=== PATIENT | male | born 1955 | race Caucasian/White ===

== ENCOUNTER → 2020-05-18 10:05 | Outpatient (CLI) | payer OTHER, SELFPAY ==
[2020-05-18 11:33] LABS: COVID19 -Nasal RAPID Negative (Negative)
== END ==
PROVIDERS: PCP Internal Medicine; Visit Provider Specialist
DX: Z20.822 Contact with and (suspected) exposure to COVID-19 (principal)
CPT/HCPCS: 87635; C9803

== ENCOUNTER 2020-05-21 06:40 | Day surgery (SDC) | payer OTHER, SELFPAY ==
[2020-05-18 09:11] VITALS: BMI 31.0
[2020-05-21] VITALS (11 sets, daily range): BP systolic 95–142; BP diastolic 60–87; PULSE 44–64; RESP 10–20; TEMP 36.2–36.6; O2SAT 91–99; BMI 29.6
--- NOTE | 2020-05-21 | PATH_ITS ---
[facility] Accession Number: [id number] . 01 Material submitted: . gallbladder - GALLBLADDER AND CONTENTS . 01 Clinical history: . LAP CONNOR . 02 Diagnosis: Gallbladder and Contents, Laparoscopic Cholecystectomy: Acute and chronic cholecystitis and cholelithiasis. [facility] 05/24/2020 1627 Local . 02 Electronically signed: . Sarah Bell MD, Pathologist NPI- [id number] . 01 Gross description: . The specimen is received in formalin, labeled gallbladder and contents and consists of a 10.5 x 3.0 x 3.0 cm previously disrupted gallbladder with a gallegos-pink wrinkled to smooth serosa. The cystic duct is patent and measures 0.2 cm in diameter. Opening reveals green viscous bile and multiple gallegos-pink to gallegos-green granular cholelith fragments ranging from 0.1 to 0.8 cm and one intact cholelith measuring 5.0 x 2.5 x 2.0 cm. The mucosa is gallegos-pink and trabeculated to velvety, and the wall thickness measures 0.1 cm. Call Center Dispatcher sections are submitted to include the en face cystic duct margin (blue) in cassette A1. ([id number]) /MRV 05/23/2020 1407 Local . 02 Pathologist provided ICD-10: K81.2 . 02 CPT . 760541 Performed at: 01 [facility] [address], [place], [place] [id number] MD Julio Cesar Mooney MD Phone: [phone] Performed at: 02 [facility] [address] , [place], [place] [id number] MD Gina Fuentes MD Phone: [phone]
[2020-05-21] MEDS: LACTATED RINGERS 1,000 ML 42 ML IV (07:34)
[2020-05-21] MEDS: CEFAZOLIN 2 GM/100 ML FROZ.PIGGY IV (08:03)
--- NOTE | 2020-05-21 08:28 | SUR.OPER ---
Supine on padded OR bed, head on pillow, safety belt at thigh, Arms secured on padded armboards <90 degrees abduction. Legs uncrossed. Padded footboard in place. Tape over blanket to secure lower legs.
[2020-05-21] MEDS: BUPIVACAINE 0.5% (PF) VIAL 30 ML INJ (08:30)
--- NOTE | 2020-05-21 08:47 | SUR.OPER ---
episode of bradycardia into the 20's, see anesthesia record. co2 insufflation lowered
--- NOTE | 2020-05-21 09:45 | PM.PREOP ---
Pre-operative Note COVID-19 COVID-19 status: Negative Result date/Date tested (Pos, Neg/Pending): 05/18/20 Interval Note History & Physical reviewed/Exam performed by Physician: Yes Changes to H&P: No
--- NOTE | 2020-05-21 09:56 | PM.OP.1 ---
Operative Date/Time/Diagnoses Date of procedure: 05/21/20 Time of procedure: 09:57 Pre-op diagnosis: Cholelithiasis with cholecystitis chronic. Post-op diagnosis: same Procedure & Clinicians Procedure: Laparoscopic cholecystectomy Same procedure as scheduled: Yes Indications: Diabetic patient with large gallstone. Surgeon: Andi Steward Click Yes if Unassisted: Yes Anesthesia Type: General Operative Notes Findings: Thickened gallbladder wall. Large stone within the lumen. Closure Type: primary Specimen(s): other (Gallbladder and contents) Prosthetic devices, grafts, tissues, transplants, or devices: None Estimated Blood Loss (mL): 10 Blood products transfused: none Procedure in detail: The patient was placed supine on the operating room table and underwent general endotracheal anesthesia. The patient was prepped and draped in the usual fashion. Local anesthetic was infiltrated near the umbilicus and curvilinear incision made and carried down through fascia into the peritoneal cavity. Stay sutures of 0 Vicryl were placed in the fascia. A 12 mm port was placed. The abdomen was insufflated. The patient was repositioned. Local anesthetic was infiltrated in 3 areas under the right costal margin and 3 small incisions made followed by placing 3 5 mm ports under direct laparoscopic camera vision internally. The gallbladder was grasped and elevated. Dissection was begun near its end. A ductal and vascular structures were from surrounding ones. Three clips were placed across each and they were divided leaving 2 in the patient. There were additional small vessels that had clips applied to them.. The gallbladder was then dissected from its bed in the liver using cautery. It was detached and removed without significant difficulty through the umbilical port. The cannula were removed and the port sites were all irrigated. The stay sutures at the umbilicus were elevated. A 2 0 PDS suture was placed between them. The Vicryl and PDS sutures were then tied. The skin in all areas was closed with interrupted 4 0 Vicryl subcuticular stitches. An additional 2-0 Prolene was used at the umbilicus to approximate the edges well. Steri-Strips and Mastisol were applied. Band-Aids were placed and the patient was awakened, extubated and taken to the recovery area in good condition. Complications: none Post-operative Condition: stable Disposition: PACU
--- NOTE | 2020-05-21 10:01 | SUR.PHASEI ---
Pt arrived to PACU from OR, VSS, abdominal dressing C/D/I, ice pack placed. Denied pain or nausea. Able to eat ice chips without difficulty. HR in high 40's & 50's, per anesthesia this is pt's baseline today. Blood glucose checked per anesthesia request = 187. Plan: fully recover pt and transfer to phase II recovery for D\C to home.
[2020-05-21] MEDS: OXYCODONE/ACETAMINOPHEN 5/325 TABLET 1 TAB PO (10:07)
== END 2020-05-21 11:10 | disposition home or self-care (01) ==
PROVIDERS: PCP Internal Medicine; Referring Provider Internal Medicine; Visit Provider Specialist
PROC: 0FT44ZZ Resection of Gallbladder, Percutaneous Endoscopic Approach (ICD-10-PCS; CPT 47562; principal; 2020-05-21 07:45)
DX: K80.10 Calculus of gallbladder with chronic cholecystitis without obstruction (principal); E11.9 Type 2 diabetes mellitus without complications; Z79.84 Long term (current) use of oral hypoglycemic drugs; F32.9 Major depressive disorder, single episode, unspecified
CPT/HCPCS: 47562; J0171; J0690; J2405; J2704; J3010

== ENCOUNTER → 2020-10-11 17:35 | Outpatient (CLI) | payer OTHER, SELFPAY ==
--- NOTE | 2020-10-11 | DI.MRI.S_ITS ---
PROCEDURE: MR LUMBAR SPINE WO CON INDICATIONS: LUMBAR RADICULOPATHY TECHNIQUE: Noncontrast sagittal T1 spin echo and T2 fast echo, sagittal STIR, axial T1 and T2 fast spin echo through the lumbar spine. In cases with scoliosis, additional coronal T2 fast spin echo may be performed. COMPARISON: None. FINDINGS: Image quality: Excellent. Alignment and Curvature: There is normal bony alignment. Bone Marrow: Marrow is of normal overall signal. No acute vertebral body compression fractures. Spinal Cord: Normal position and appearance of the conus. Regional Soft Tissues: Prevertebral and paraspinous soft tissues are within normal limits. T12-L1: No spinal canal or neural foraminal stenosis. L1-L2: No spinal canal or neural foraminal stenosis. L2-L3: No spinal canal or neural foraminal stenosis. L3-L4: Diffuse disc bulge and a superimposed broad-based posterior disc extrusion combine to flatten and indent the ventral thecal sac. Disc material abuts and slightly displaces the descending L4 nerve roots within both subarticular zones. There is bulky facet hypertrophy and buckling of the ligamentum flavum which further contributes to overall mild spinal canal and subarticular zone stenosis. These factors combine to produce mild bilateral neural foraminal narrowing. L4-L5: Diffuse disc bulge and a superimposed broad-based posterior disc protrusion flatten and indent the ventral thecal sac with displacement of the descending L5 nerve roots in both subarticular zones. Bulky facet hypertrophy and buckling of the ligamentum flavum further contribute to overall moderate subarticular zone stenosis and mild spinal canal stenosis. There is superior migration of disc material within the right paracentral and subarticular zones which extends approximately 1.7 centimeters above the intervertebral disc space. Foraminal components of the disc bulge and facet hypertrophy combine to produce mild bilateral neural foraminal narrowing. L5-S1: Diffuse disc bulge and a superimposed broad-based posterior disc protrusion with displacement of the descending S1 nerve root by disc material. No neural foraminal stenosis. Facet hypertrophy. IMPRESSION: Degenerative changes in the lower lumbar spine, most pronounced at L4-L5 where there is a disc extrusion with superior migration of disc material which combines with facet hypertrophy to produce moderate bilateral subarticular zone stenosis with displacement of the L5 nerve roots, right greater than left. Dictated by: James Lopez M.D. on 10/12/2020 at 8:35 Approved by: James Lopez M.D. on 10/12/2020 at 8:38
== END ==
PROVIDERS: PCP Internal Medicine; Referring Provider Internal Medicine; Visit Provider Internal Medicine
DX: M54.16 Radiculopathy, lumbar region (principal)
CPT/HCPCS: 72148

== ENCOUNTER → 2021-03-13 08:36 | Outpatient (CLI) | payer MEDICARE, OTHER, SELFPAY ==
[2021-03-13 09:44] LABS: Add Manual Diff / Slide Review NO; Basophils Absolute Auto 0 /uL (0-100); Basophils Percent Auto 0.6 % (0-2); Eosinophils Absolute Auto 200 /uL (0-450); Eosinophils Percent Auto 2.3 % (2-4); Hematocrit 43.8 % (41-53); Hemoglobin 14.9 g/dL (13.5-17.5); Lymphocytes Absolute Auto 2000 /uL (1100-4500); Lymphocytes Percent Auto 23.6 % (25-40); Mean Corpuscular Hemoglobin 28.2 PG (26-34); Mean Corpuscular Volume 82.7 fL (80-100); Monocytes Absolute Auto 700 /uL (0-900); Monocytes Percent Auto 8.5 % (3-14); Neutrophils Absolute Auto 5500 /uL (1500-7000); Platelet Count 351 X10^3/uL (150-400); Red Blood Cell Count 5.29 X10^6/uL (4.5-5.9); Red Cell Distribution Width 13.5 % (11.6-14.8); White Blood Cell Count 8.4 X10^3/uL (4.5-11.0)
[2021-03-13 10:07] LABS: Alanine Aminotransferase 32 IU/L (<50); Albumin 4.6 g/dL (3.5-5.0); Albumin Globulin Ratio 1.5 (1.0-2.8); Alkaline Phosphatase 99 U/L (38-126); Aspartate Aminotransferase 30 IU/L (17-59); BUN Creatinine Ratio 17.5 (6-22); Bilirubin Total 0.8 mg/dL (0.2-1.3); Blood Urea Nitrogen 14 mg/dL (9-20); Calcium 9.7 mg/dL (8.4-10.2); Carbon Dioxide 32 mmol/L (22-32); Chloride 100 mmol/L (98-107); Cholesterol 163 mg/dL (140-199); Estimated Glomerular Filt Rate > 60.0 mL/min (>60); Globulin 3.1 g/dL (1.7-4.1); Glucose 147 mg/dL (80-110); HDL Cholesterol 66 mg/dL (40-60); HEMOLYSIS < 15 (0-50); LDL Cholesterol Calculated 78 mg/dL (<100); Potassium 4.2 mmol/L (3.4-5.1); Sodium 140 mmol/L (137-145); Total Protein 7.7 g/dL (6.3-8.2); Triglycerides 95 mg/dL (35-150)
[2021-03-13 10:21] LABS: Hemoglobin A1C% w Est Avg Glu 6.8 % (4.0-6.0)
[2021-03-13 10:34] LABS: Creatinine Urine Random 85.9 mg/dL
[2021-03-13 10:36] LABS: Microalbumi Creatinin Ratio Ur 13.9 ug/mg CR (<30); Microalbumin Urine Random 1.2 mg/dL (0-1.6)
[2021-03-13 10:42] LABS: TSH w/ Reflex to FT4 2.19 uIU/mL (0.47-4.68)
== END ==
PROVIDERS: PCP Family Medicine; Referring Provider Family Medicine; Visit Provider Family Medicine
DX: E11.9 Type 2 diabetes mellitus without complications (principal); E78.5 Hyperlipidemia, unspecified; G89.29 Other chronic pain; I10 Essential (primary) hypertension; M54.59 Other low back pain
CPT/HCPCS: 36415; 80053; 80061; 82043; 82570; 83036; 84443; 85025

== ENCOUNTER 2021-06-20 22:10 | Emergency (ER) | payer MEDICARE, OTHER, SELFPAY ==
[2021-06-20] VITALS (10 sets, daily range): BP systolic 167–214; BP diastolic 84–101; PULSE 55–71; RESP 16–24; TEMP 36.6; O2SAT 94–98; BMI 27.3
--- NOTE | 2021-06-20 22:41 | ED_ITS ---
HPI - General Adult General Chief complaint: Hypertension Stated complaint: multiple headaches Time Seen by Provider: 06/20/21 22:30 Source: patient Mode of arrival: Ambulatory History of Present Illness HPI narrative: Patient is a 66-year-old male. Has a history of high blood pressure. Approximately 6 weeks ago he was switched from amlodipine to lisinopril for treatment of his blood pressure. He states this was done by his primary doctor because of concerns that the amlodipine could cause liver issues. Since that time he has had headaches. He does have a history of migraines. The headache that he currently has feels very similar to his prior history of migraines. He has not had any migraine for several years. He is somewhat concerned that maybe the lisinopril is causing the headaches. He does have periods of time when the headache is worse than others but has had daily headaches for the past several weeks. Continues to take his lisinopril. Only occasionally takes his blood pressure at home and today he was having a more severe headache than normal for him so he took his blood pressure and was elevated. Contacted the triage nurse who told him to come to the emergency department for further evaluation. Related Data Home Medications Medication Instructions Recorded Confirmed fluticasone propionate 50 1 spray INTRANASAL BID 04/24/20 05/13/21 mcg/actuation nasal spray,suspension (Flonase Allergy Relief) acetaminophen 325 mg capsule 650 mg PO Q6H PRN 02/07/21 05/13/21 (Tylenol) aspirin 81 mg tablet,delayed 81 mg PO DAILY 02/07/21 05/13/21 release (Adult Low Dose Aspirin) gabapentin 300 mg capsule 300 mg PO BID 02/07/21 05/13/21 metformin 500 mg tablet 500 mg PO BID tab 02/07/21 05/13/21 pravastatin 10 mg tablet 10 mg PO BEDTIME 02/07/21 05/13/21 propranolol 40 mg tablet 20 mg PO BID 02/07/21 05/13/21 Previous Rx's Medication Instructions Recorded duloxetine 30 mg capsule,delayed 30 mg PO DAILY #90 cap 05/07/21 release (Cymbalta) losartan 100 mg tablet 100 mg PO DAILY #90 tab 05/13/21 tramadol 50 mg tablet 50 mg PO BID PRN #60 tab 05/13/21 meloxicam 15 mg tablet 15 mg PO DAILY #90 tab 05/15/21 Allergies Allergy/AdvReac Type Severity Reaction Status Date / Time No Known Drug Allergies Allergy Unverified 06/20/21 22:21 Review of Systems Constitutional Constitutional: Denies fever(s) and Reports headache(s) Eyes Eyes: Reports system reviewed and no additional complaints, except as documented ENT Ears, Nose, Mouth, and Throat: Reports headache(s) Cardiovascular Cardiovascular: Reports system reviewed and no additional complaints, except as documented, Denies chest pain and Denies dyspnea Respiratory Respiratory: Reports system reviewed and no additional complaints, except as documented and Denies dyspnea Gastrointestinal Gastrointestinal: Reports system reviewed and no additional complaints, except as documented Musculoskeletal Musculoskeletal: Reports system reviewed and no additional complaints, except as documented Integumentary/Breasts Skin/Breast: Reports system reviewed and no additional complaints, except as documented Neurologic Neurologic: Reports headache(s) Hematologic/Lymphatic On Anticoagulants: No Allergic/Immunologic Allergic/Immunologic: Reports system reviewed and no additional complaints, except as documented Patient History Medical History Allergies (~1995) Ankle pain (~2011) Anxiety (~2011) Arthritis Carpal tunnel syndrome (~2002) Chicken pox (~1961) Chronic back pain (~1993) Chronic bronchitis Depression (~2011) Diabetes (~2012) Foot pain (~2019) GERD (gastroesophageal reflux disease) (~1997) Headache (~1979) Hearing loss (~1992) Hyperlipidemia Hypertension Irritable bowel syndrome (~1995) Migraines (~1999) Mumps (~1960) Osteoarthritis Recurrent sinusitis (~1977) Rheumatoid arthritis (~2009) Shoulder pain Sleep apnea (~2010) Tinnitus (~1992) Surgical History (Updated 03/13/21 @ 21:04 by Olga Baptiste) Anesthesia History of back surgery History of cholecystectomy History of colonoscopy (2014) Hx of bilateral cataract extraction (~2015) Hx of eye surgery Family History (Updated 03/13/21 @ 21:11 by Olga Baptiste) Mother Hypertension Diabetes mellitus Heart disease Gallstones H/O heart bypass surgery COPD (chronic obstructive pulmonary disease) Circulation problem Hyperlipidemia Grandfather Stomach cancer Father Dementia History of hip replacement Heart valve replaced Sister Depression Anxiety Thyroid disease Grandmother Dementia Diabetes mellitus Family/Other Anxiety Depression Social History marital status: household members: spouse occupational status: employed Smoking Status: Never smoker alcohol intake: current substance use type: does not use Smoking Status: Never smoker alcohol intake frequency: holidays/special occasions only Substance Use Type: does not use Exam Initial Vital Signs Initial Vital Signs: Vital Signs Pulse Rate 71 06/20/21 22:16 Pulse Oximetry 96 06/20/21 22:16 Const General: cooperative, healthy appearing, comfortable and well developed HENMT Head: normal to inspection and normocephalic Resp Effort & Inspection: normal respiratory effort Auscultation: clear to auscultation bilaterally Cardio Rate: regular rate Rhythm: regular rhythm GI Inspection: normal to inspection Skin General: no rashes or lesions noted Neuro General: patient alert, patient awake, patient oriented x3 and moves all extremities Extrem General: normal to inspection and capillary refill normal Psych Appearance: grossly normal and well kempt Scores GCS Lynn coma scale eye opening: Spontaneous [place] coma scale verbal response: Orientated [place] coma scale motor response: Obey commands [place] coma scale total score: 15 Course Orders Ordered: ED Orders 06/20/21 22:22 EKG-12 Lead Stat Discontinued Medications Diphenhydramine HCl (Diphenhydramine 50 Mg/Ml Vial) 25 mg IV NOW ONE Stop: 06/20/21 22:43 Last Admin: 06/20/21 22:52 Dose: 25 mg Documented by: ANABEL Sodium Chloride (Normal Saline 0.9%) 1,000 mls @ 1,000 mls/hr IV BOLUS ONE Stop: 06/20/21 23:41 Last Infusion: 06/21/21 00:07 Dose: 0 mls/hr Documented by: Admin: 06/20/21 22:52 Dose: 1,000 mls/hr Documented by: ANABEL Ketorolac Tromethamine (Ketorolac 30 Mg/Ml Vial) 30 mg IV NOW ONE Stop: 06/20/21 22:43 Last Admin: 06/20/21 22:52 Dose: 30 mg Documented by: ANABEL Metoclopramide HCl (Metoclopramide 10 Mg/2 Ml Inj) 10 mg IV NOW ONE Stop: 06/20/21 22:43 Last Admin: 06/20/21 22:52 Dose: 10 mg Documented by: ANABEL Vital Signs Vital signs: Vital Signs - 8 hr 06/20/21 22:16 06/20/21 22:17 06/20/21 22:21 Temperature 97.9 F Pulse Rate 71 71 60 Respiratory Rate 16 24 Blood Pressure 214/101 H 206/100 H Pulse Oximetry 96 95 95 06/20/21 22:30 06/20/21 22:45 06/20/21 23:00 Temperature Pulse Rate 58 L 59 L 56 L Respiratory Rate 19 20 24 Blood Pressure 193/84 H 176/91 H 178/96 H Pulse Oximetry 94 94 95 06/20/21 23:15 06/20/21 23:30 06/20/21 23:45 Temperature Pulse Rate 55 L 56 L 57 L Respiratory Rate 17 20 19 Blood Pressure 175/89 H 177/98 H Pulse Oximetry 95 94 94 06/20/21 23:46 06/21/21 00:00 06/21/21 00:15 Temperature Pulse Rate 57 L 54 L 52 L Respiratory Rate 19 17 Blood Pressure 167/86 H 153/83 H Pulse Oximetry 95 94 97 06/21/21 00:30 06/21/21 00:45 06/21/21 01:00 Temperature Pulse Rate 54 L 56 L 59 L Respiratory Rate Blood Pressure Pulse Oximetry 94 94 95 06/21/21 01:03 Temperature Pulse Rate Respiratory Rate Blood Pressure 155/93 H Pulse Oximetry Medical Decision Making MDM Narrative Medical decision making narrative: Have low suspicion for CVA. Low suspicion for meningitis. Low suspicion for TIA. Patient had almost complete resolution of symptoms after medications provided here in the ER. His blood pressure improved as well. I have a higher concern that the hypertension was because of the discomfort of the headache rather than headache being because of the high blood pressure. Patient feels o pj with going home. I feel that we can hold on any radiologic studies or lab tests for now as I do not feel that is going to change disposition. He will take his blood pressure at home. He is going to contact his primary doctor about whether not to stop the lisinopril as this may be causing his headaches. He was given strict return precautions. He expressed understanding and agreement. Discharge Plan Departure Patient Disposition: Home Clinical Impression: Hypertension, Headache Instructions: DI for High Blood Pressure Activity Restrictions/Additional Instructions: I do recommend that you take your blood pressure at home like we discussed. Also contact your primary doctor for a follow-up. It is not unreasonable in the short term to stop taking the lisinopril to see if your headaches improve. If they do then you most likely need another form of a blood pressure medication. Return to the emergency department for any new or worsening symptoms. Prescriptions: No Action duloxetine [Cymbalta] 30 mg capsule,delayed release(DR/EC) 30 mg PO DAILY Qty: 90 3RF meloxicam 15 mg tablet 15 mg PO DAILY Qty: 90 3RF propranolol 40 mg tablet 20 mg PO BID 0RF gabapentin 300 mg capsule 300 mg PO BID 0RF pravastatin 10 mg tablet 10 mg PO BEDTIME 0RF aspirin [Adult Low Dose Aspirin] 81 mg tablet,delayed release (DR/EC) 81 mg PO DAILY 0RF acetaminophen [Tylenol] 325 mg capsule 650 mg PO Q6H PRN0RF metformin 500 mg tablet 500 mg PO BID 0RF losartan 100 mg tablet 100 mg PO DAILY Qty: 90 3RF tramadol 50 mg tablet 50 mg PO BID PRN (Reason: Pain) Qty: 60 0RF fluticasone propionate [Flonase Allergy Relief] 50 mcg/actuation spray ,suspension 1 spray intranasal BID 0RF Rx Instructions: administer into each nostril Referrals: Diego Meng MD [Primary Care Provider] -
[2021-06-20] MEDS: SODIUM CHLORIDE 0.9% 1,000 ML 1000 ML IV (22:52)
[2021-06-20] MEDS: KETOROLAC 30 MG/ML VIAL IV (22:52)
[2021-06-20] MEDS: METOCLOPRAMIDE 10 MG/2 ML INJ IV (22:52)
[2021-06-20] MEDS: diphenhydrAMINE 50 MG/ML VIAL 25 MG IV (22:52)
[2021-06-21] VITALS: BP 153/83; PULSE 54; RESP 17; O2SAT 94
[2021-06-21 00:15] VITALS: PULSE 52; O2SAT 97
[2021-06-21 00:30] VITALS: PULSE 54; O2SAT 94
[2021-06-21 00:45] VITALS: PULSE 56; O2SAT 94
[2021-06-21 01:00] VITALS: PULSE 59; O2SAT 95
[2021-06-21 01:03] VITALS: BP 155/93
== END 2021-06-21 01:10 | disposition home or self-care (01) ==
PROVIDERS: Emergency Provider Emergency Medicine; PCP Family Medicine
DX: I10 Essential (primary) hypertension (principal); R51.9 Headache, unspecified
CPT/HCPCS: 36415; 93005; 93010; 96361; 96374; 96375; 99284; J1200; J1885; J2765

== ENCOUNTER 2021-06-23 17:41 | Emergency (ER) | payer MEDICARE, OTHER, SELFPAY ==
[2021-06-23] VITALS (12 sets, daily range): BP systolic 166–221; BP diastolic 87–115; PULSE 60–69; RESP 16–20; TEMP 36.4; O2SAT 94–98
--- NOTE | 2021-06-23 18:00 | ED_ITS ---
HPI - Headache General Chief Complaint: Headache Stated Complaint: Massive headache; high BP; Time Seen by Provider: 06/23/21 17:51 Source: patient Mode of arrival: Ambulatory Limitations: no limitations History of Present Illness HPI Narrative: Patient is a 66-year-old male. Was seen here in the emergency department by myself couple days ago for a headache and high blood pressure. At that time patient had been having headache for the past month but has been worsening recently. He thought that it was because of a change in his blood pressure medicine. His primary doctor switched him from amlodipine to losartan. He was given medicines here in the emergency department and discharged home feeling better. He stopped his losartan. He continue the rest was medications as directed. Since being discharged from the hospital he stated that he woke up the next day with a ?slight ?headache. He was able to work around the house but then that evening started to develop headache again and then had a headache all day today. He states is the same headache that he had a couple days ago. Related Data Home Medications Medication Instructions Recorded Confirmed fluticasone propionate 50 1 spray INTRANASAL BID 04/24/20 05/13/21 mcg/actuation nasal spray,suspension (Flonase Allergy Relief) acetaminophen 325 mg capsule 650 mg PO Q6H PRN 02/07/21 05/13/21 (Tylenol) aspirin 81 mg tablet,delayed 81 mg PO DAILY 02/07/21 05/13/21 release (Adult Low Dose Aspirin) gabapentin 300 mg capsule 300 mg PO BID 02/07/21 05/13/21 metformin 500 mg tablet 500 mg PO BID tab 02/07/21 05/13/21 pravastatin 10 mg tablet 10 mg PO BEDTIME 02/07/21 05/13/21 propranolol 40 mg tablet 20 mg PO BID 02/07/21 05/13/21 Previous Rx's Medication Instructions Recorded duloxetine 30 mg capsule,delayed 30 mg PO DAILY #90 cap 05/07/21 release (Cymbalta) losartan 100 mg tablet 100 mg PO DAILY #90 tab 05/13/21 tramadol 50 mg tablet 50 mg PO BID PRN #60 tab 05/13/21 meloxicam 15 mg tablet 15 mg PO DAILY #90 tab 05/15/21 [id number] 1 cap PO Q4-6H PRN #14 cap 06/23/21 50 mg-300 mg-40 mg capsule (Fioricet) Allergies Allergy/AdvReac Type Severity Reaction Status Date / Time No Known Drug Allergies Allergy Unverified 06/23/21 17:53 Review of Systems Constitutional Constitutional: Denies fever(s) and Reports headache(s) Eyes Eyes: Reports system reviewed and no additional complaints, except as documented ENT Ears, Nose, Mouth, and Throat: Reports headache(s) Cardiovascular Cardiovascular: Denies chest pain and Denies dyspnea Respiratory Respiratory: Denies dyspnea Gastrointestinal Gastrointestinal: Denies abdominal pain, Denies nausea and Denies vomiting Musculoskeletal Musculoskeletal: Reports system reviewed and no additional complaints, except as documented Integumentary/Breasts Skin/Breast: Reports system reviewed and no additional complaints, except as documented Neurologic Neurologic: Reports headache(s) Psychiatric Psychiatric: Reports system reviewed and no additional complaints, except as documented Hematologic/Lymphatic On Anticoagulants: No Patient History Medical History Allergies (~1995) Ankle pain (~2011) Anxiety (~2011) Arthritis Carpal tunnel syndrome (~2002) Chicken pox (~1961) Chronic back pain (~1993) Chronic bronchitis Depression (~2011) Diabetes (~2012) Foot pain (~2019) GERD (gastroesophageal reflux disease) (~1997) Headache (~1979) Hearing loss (~1992) Hyperlipidemia Hypertension Irritable bowel syndrome (~1995) Migraines (~1999) Mumps (~1960) Osteoarthritis Recurrent sinusitis (~1977) Rheumatoid arthritis (~2009) Shoulder pain Sleep apnea (~2010) Tinnitus (~1992) Surgical History (Updated 03/13/21 @ 21:04 by Olga Baptiste) Anesthesia History of back surgery History of cholecystectomy History of colonoscopy (2014) Hx of bilateral cataract extraction (~2015) Hx of eye surgery Family History (Updated 03/13/21 @ 21:11 by Olga Baptiste) Mother Hypertension Diabetes mellitus Heart disease Gallstones H/O heart bypass surgery COPD (chronic obstructive pulmonary disease) Circulation problem Hyperlipidemia Grandfather Stomach cancer Father Dementia History of hip replacement Heart valve replaced Sister Depression Anxiety Thyroid disease Grandmother Dementia Diabetes mellitus Family/Other Anxiety Depression Social History marital status: household members: spouse occupational status: employed Smoking Status: Never smoker alcohol intake: current substance use type: does not use Smoking Status: Never smoker alcohol intake frequency: holidays/special occasions only Substance Use Type: does not use Exam Initial Vital Signs Initial Vital Signs: Vital Signs Temperature 97.5 F L 06/23/21 17:51 Pulse Rate 68 06/23/21 17:51 Respiratory Rate 18 06/23/21 17:51 Blood Pressure 218/115 H 06/23/21 17:51 Pulse Oximetry 97 06/23/21 17:51 HENMT Head: normal to inspection and normocephalic Eyes General: appearance normal, both eyes and all related structures Resp Effort & Inspection: normal respiratory effort Auscultation: clear to auscultation bilaterally Cardio Rate: regular rate Rhythm: regular rhythm GI Inspection: normal to inspection Skin General: no rashes or lesions noted Neuro General: patient alert, patient awake and patient oriented x3 Speech: speech normal Gait: normal gait Extrem General: normal to inspection and capillary refill normal Psych Appearance: grossly normal Course Orders Ordered: ED Orders 06/23/21 17:45 Basic Metabolic Panel Stat Complete Blood Count AUTO DIFF Stat 06/23/21 18:20 CT head/brain wo con Stat Discontinued Medications Diphenhydramine HCl (Diphenhydramine 50 Mg/Ml Vial) 25 mg IV NOW ONE Stop: 06/23/21 18:20 Last Admin: 06/23/21 18:41 Dose: 25 mg Documented by: GREGORIO Sodium Chloride (Normal Saline 0.9%) 1,000 mls @ 1,000 mls/hr IV BOLUS ONE Stop: 06/23/21 19:18 Last Infusion: 06/23/21 19:38 Dose: 0 mls/hr Documented by: Admin: 06/23/21 18:39 Dose: 1,000 mls/hr Documented by: JOSTINYLKULDEEP Ketorolac Tromethamine (Ketorolac 30 Mg/Ml Vial) 30 mg IV NOW ONE Stop: 06/23/21 18:20 Last Admin: 06/23/21 18:44 Dose: 30 mg Documented by: JOSTINYLKULDEEP Methylprednisolone (Methylprednisolone 125 Mg/2 Ml Vial) 125 mg IV NOW ONE Stop: 06/23/21 18:20 Last Admin: 06/23/21 18:46 Dose: 125 mg Documented by: JOSTINYLOR Metoclopramide HCl (Metoclopramide 10 Mg/2 Ml Inj) 10 mg IV NOW ONE Stop: 06/23/21 18:20 Last Admin: 06/23/21 18:39 Dose: 10 mg Documented by: JOSTINYLOR Morphine Sulfate (Morphine 4 Mg/Ml Inj) 4 mg IV NOW ONE Stop: 06/23/21 19:40 Last Admin: 06/23/21 19:48 Dose: 4 mg Documented by: KIZZY Vital Signs Vital signs: Vital Signs - 8 hr 06/23/21 17:51 06/23/21 17:52 06/23/21 18:00 Temperature 97.5 F L Pulse Rate 68 64 65 Respiratory Rate 18 20 Blood Pressure 218/115 H 196/93 H Pulse Oximetry 97 96 96 06/23/21 18:38 06/23/21 18:50 06/23/21 19:00 Temperature Pulse Rate 62 64 60 Respiratory Rate Blood Pressure 198/93 H 198/98 H Pulse Oximetry 98 95 95 06/23/21 19:30 06/23/21 19:38 06/23/21 19:46 Temperature Pulse Rate 61 69 63 Respiratory Rate Blood Pressure 221/105 H 185/95 H 186/87 H Pulse Oximetry 97 95 96 06/23/21 20:00 06/23/21 20:15 06/23/21 20:30 Temperature Pulse Rate 61 68 67 Respiratory Rate 16 Blood Pressure 166/88 H 176/101 H 173/94 H Pulse Oximetry 95 95 94 MDM - Headache Lab Data Attestation: I reviewed the patient's lab results. Result diagrams: 06/23/21 17:45 06/23/21 17:45 Labs: Lab Results 06/23/21 06/23/21 Range/Units 17:45 17:45 WBC 11.3 H (4.5-11.0) X10^3/uL RBC 5.56 (4.5-5.9) X10^6/uL Hgb 15.6 (13.5-17.5) g/dL Hct 46.2 (41-53) % MCV 83.1 (80-100) fL MCH 28.0 (26-34) PG MCHC 33.7 (30-36) % RDW 13.5 (11.6-14.8) % Plt Count 372 (150-400) X10^3/uL Neut % (Auto) 83.0 H (50-75) % Lymph % (Auto) 12.1 L (25-40) % [place] % (Auto) 4.1 (3-14) % Eos % (Auto) 0.4 L (2-4) % Baso % (Auto) 0.4 (0-2) % Neut # (Auto) 9400 H (3656-1915) /uL Lymph # (Auto) 1400 (5251-3705) /uL [place] # (Auto) 500 (0-900) /uL Eos # (Auto) 0 (0-450) /uL Baso # (Auto) 0 (0-100) /uL Sodium 136 L (137-145) mmol/L Potassium 4.4 (3.4-5.1) mmol/L Chloride 100 (98-107) mmol/L Carbon Dioxide 30 (22-32) mmol/L BUN 15 (9-20) mg/dL Creatinine 0.88 (0.66-1.25) mg/dL Estimated GFR > 60.0 (>60) mL/min BUN/Creatinine Ratio 17.0 (6-22) Glucose 184 H (80-110) mg/dL Calcium 10.0 (8.4-10.2) mg/dL Imaging Data CT scan - head: Radiologist's Impression: [address] [address] [address] Scan Report Signed Patient: Ish Lilly MR#: [id number] : 1955 Acct:[id number] Age/Sex: 66 / M Date of Service: 06/23/21 Loc: ED Accession Number: [id number] ?? Procedure: CT head/brain wo con Ordering Provider: Kingsley Kulkarni D.O. PROCEDURE:? CT HEAD/BRAIN WO CON ? INDICATIONS:? headache and HTN ? TECHNIQUE:? Noncontrast 4.5 mm thick angled axial sections acquired from the foramen magnum to the vertex, with coronal and sagittal reformats.? For radiation dose reduction, the following was used:? automated exposure control, adjustment of mA and/or kV according to patient size.? ? COMPARISON:? None. ? FINDINGS:? Image quality:? Excellent.? ? CSF spaces:? Basal cisterns are patent.? No extra-axial fluid collections.? The ventricles are symmetric in size and shape.? ? Brain:? No intracranial bleeds or masses.? There is cerebral volume loss for age, with resultant ventricular and sulcal prominence.? There are periventricular and deep white matter chronic small vessel ischemic changes.? There is intracranial internal carotid artery atherosclerosis.? ? Skull and face:? Calvarium and visualized facial bones appear intact, without suspicious lesions.? ? Sinuses:? Visualized sinuses and mastoids are clear.? ? IMPRESSION:? No acute intracranial abnormality. ? ? Dictated by: Giuliano Hoang M.D. on 06/23/2021 at 18:37 ? ? Approved by: Giuliano Hoang M.D. on 06/23/2021 at 18:38?? MDM Narrative Medical decision making narrative: Patient has the same headache that he had 2 days ago. He is hypertensive but also has not taken any of his losartan in the past couple days. His head CT was unremarkable. Labs are unremarkable. Has a unremarkable neurologic exam. Low suspicion for CVA. Low suspicion for TIA. Unsure as to whether not his headaches are caused by his high blood pressure for high blood pressure cause by his headache or potentially both. He feels better after medications provided here in the ER but the headache is not completely gone. He has an appointment with his primary doctor scheduled in just over a week from now. Plan will be is to have him start back on his amlodipine. He states he was taken off of this medication because of the concern for long-term affects with his kidneys. Not being on a blood pressure medicine most likely is causing his elevation today. He will discuss with his primary provider about any potential changes. He has amlodipine at home already available for him to take. Also send him home with Rory is his headaches could just unfortunately be a recurrence of the headaches he had many years ago. He was given return precautions and follow-up instructions. He expressed understanding and agreement. Discharge Plan Departure Patient Disposition: Home Clinical Impression: Headache, Hypertension Instructions: DI for Headache Activity Restrictions/Additional Instructions: Continue all of your medications at home except for stopping the losartan. I do recommend that you go back on the amlodipine at your prior dose. I electronically sent a headache medication to the [facility]. Please pick it up tomorrow and take it as directed. Keep your appointment she has scheduled with your primary provider. Return to the emergency department for any new or worsening symptoms. Prescriptions: New [id number]-[id number] [Fioricet] 50-300-40 mg capsule 1 cap PO Q4-6H PRN (Reason: pain) Qty: 14 0RF No Action duloxetine [Cymbalta] 30 mg capsule,delayed release(DR/EC) 30 mg PO DAILY Qty: 90 3RF meloxicam 15 mg tablet 15 mg PO DAILY Qty: 90 3RF propranolol 40 mg tablet 20 mg PO BID 0RF gabapentin 300 mg capsule 300 mg PO BID 0RF pravastatin 10 mg tablet 10 mg PO BEDTIME 0RF aspirin [Adult Low Dose Aspirin] 81 mg tablet,delayed release (DR/EC) 81 mg PO DAILY 0RF acetaminophen [Tylenol] 325 mg capsule 650 mg PO Q6H PRN0RF metformin 500 mg tablet 500 mg PO BID 0RF losartan 100 mg tablet 100 mg PO DAILY Qty: 90 3RF tramadol 50 mg tablet 50 mg PO BID PRN (Reason: Pain) Qty: 60 0RF fluticasone propionate [Flonase Allergy Relief] 50 mcg/actuation spray, suspension 1 spray intranasal BID 0RF Rx Instructions: administer into each nostril Referrals: Diego Meng MD [Primary Care Provider] -
--- NOTE | 2021-06-23 18:10 | PC.NURSE ---
Spouse called RN to room, pt vomiting. Sat pt up, emesis bag provided and Dr Stahl notified and orders received, pt vomited approximately 20ml. Pt reports he was in pain while laying down but improved when sat up during process.
--- NOTE | 2021-06-23 18:20 | DI.CT.S_ITS ---
PROCEDURE: CT HEAD/BRAIN WO CON INDICATIONS: headache and HTN TECHNIQUE: Noncontrast 4.5 mm thick angled axial sections acquired from the foramen magnum to the vertex, with coronal and sagittal reformats. For radiation dose reduction, the following was used: automated exposure control, adjustment of mA and/or kV according to patient size. COMPARISON: None. FINDINGS: Image quality: Excellent. CSF spaces: Basal cisterns are patent. No extra-axial fluid collections. The ventricles are symmetric in size and shape. Brain: No intracranial bleeds or masses. There is cerebral volume loss for age, with resultant ventricular and sulcal prominence. There are periventricular and deep white matter chronic small vessel ischemic changes. There is intracranial internal carotid artery atherosclerosis. Skull and face: Calvarium and visualized facial bones appear intact, without suspicious lesions. Sinuses: Visualized sinuses and mastoids are clear. IMPRESSION: No acute intracranial abnormality. Dictated by: Giuliano Hoang M.D. on 06/23/2021 at 18:37 Approved by: Giuliano Hoang M.D. on 06/23/2021 at 18:38
[2021-06-23 18:29] LABS: Add Manual Diff / Slide Review NO; Basophils Absolute Auto 0 /uL (0-100); Basophils Percent Auto 0.4 % (0-2); Eosinophils Absolute Auto 0 /uL (0-450); Eosinophils Percent Auto 0.4 % (2-4); Hematocrit 46.2 % (41-53); Hemoglobin 15.6 g/dL (13.5-17.5); Lymphocytes Absolute Auto 1400 /uL (1100-4500); Lymphocytes Percent Auto 12.1 % (25-40); Mean Corpuscular HGB Conc 33.7 % (30-36); Mean Corpuscular Volume 83.1 fL (80-100); Monocytes Absolute Auto 500 /uL (0-900); Monocytes Percent Auto 4.1 % (3-14); Neutrophils Absolute Auto 9400 /uL (1500-7000); Platelet Count 372 X10^3/uL (150-400); Red Blood Cell Count 5.56 X10^6/uL (4.5-5.9); Red Cell Distribution Width 13.5 % (11.6-14.8); White Blood Cell Count 11.3 X10^3/uL (4.5-11.0)
[2021-06-23] MEDS: SODIUM CHLORIDE 0.9% 1,000 ML 1000 ML IV (18:39)
[2021-06-23] MEDS: METOCLOPRAMIDE 10 MG/2 ML INJ IV (18:39)
[2021-06-23 18:40] LABS: Blood Urea Nitrogen 15 mg/dL (9-20); Carbon Dioxide 30 mmol/L (22-32); Chloride 100 mmol/L (98-107); Estimated Glomerular Filt Rate > 60.0 mL/min (>60); Glucose 184 mg/dL (80-110); HEMOLYSIS < 15 (0-50); Potassium 4.4 mmol/L (3.4-5.1); Sodium 136 mmol/L (137-145)
[2021-06-23] MEDS: diphenhydrAMINE 50 MG/ML VIAL 25 MG IV (18:41)
[2021-06-23] MEDS: KETOROLAC 30 MG/ML VIAL IV (18:44)
[2021-06-23] MEDS: methylPREDNISolone 125 MG/2 ML VIAL IV (18:46)
--- NOTE | 2021-06-23 19:29 | PC.NURSE ---
Pt reports some improvement in symptoms.
[2021-06-23] MEDS: MORPHINE 4 MG/ML INJ IV (19:48)
== END 2021-06-23 20:42 | disposition home or self-care (01) ==
PROVIDERS: Emergency Provider Emergency Medicine; PCP Family Medicine
DX: R51.9 Headache, unspecified (principal); I10 Essential (primary) hypertension
CPT/HCPCS: 36415; 70450; 80048; 85025; 96361; 96374; 96375; 99284; J1200; J1885; J2270; J2765; J2930

== ENCOUNTER → 2022-02-03 15:05 | Outpatient (CLI) | payer MEDICARE, OTHER, SELFPAY ==
[2022-02-03 16:55] LABS: Add Manual Diff / Slide Review NO; Basophils Absolute Auto 0 /uL (0-100); Basophils Percent Auto 0.4 % (0-2); Eosinophils Absolute Auto 200 /uL (0-450); Hematocrit 41.8 % (41-53); Hemoglobin 14.3 g/dL (13.5-17.5); Lymphocytes Absolute Auto 3300 /uL (1100-4500); Lymphocytes Percent Auto 33.5 % (25-40); Mean Corpuscular HGB Conc 34.1 % (30-36); Mean Corpuscular Hemoglobin 28.4 PG (26-34); Mean Corpuscular Volume 83.2 fL (80-100); Monocytes Absolute Auto 900 /uL (0-900); Monocytes Percent Auto 9.2 % (3-14); Neutrophils Absolute Auto 5400 /uL (1500-7000); Neutrophils Percent Auto 54.9 % (50-75); Platelet Count 332 X10^3/uL (150-400); Red Blood Cell Count 5.03 X10^6/uL (4.5-5.9); Red Cell Distribution Width 13.5 % (11.6-14.8); White Blood Cell Count 9.8 X10^3/uL (4.5-11.0)
[2022-02-03 16:57] LABS: Hemoglobin A1C% w Est Avg Glu 7.2 % (4.0-6.0)
[2022-02-03 17:09] LABS: Alanine Aminotransferase 38 IU/L (<50); Albumin 4.5 g/dL (3.5-5.0); Albumin Globulin Ratio 1.4 (1.0-2.8); Alkaline Phosphatase 95 U/L (38-126); Aspartate Aminotransferase 39 IU/L (17-59); BUN Creatinine Ratio 19.6 (6-22); Bilirubin Total 0.5 mg/dL (0.2-1.3); Blood Urea Nitrogen 18 mg/dL (9-20); Calcium 9.6 mg/dL (8.4-10.2); Carbon Dioxide 28 mmol/L (22-32); Chloride 101 mmol/L (98-107); Cholesterol 175 mg/dL (140-199); Estimated Glomerular Filt Rate > 60 mL/min (>60); Globulin 3.3 g/dL (1.7-4.1); Glucose 92 mg/dL (80-110); HDL Cholesterol 58 mg/dL (40-60); HEMOLYSIS < 15 (0-50); LDL Cholesterol Calculated 94 mg/dL (<100); Potassium 4.2 mmol/L (3.4-5.1); Sodium 141 mmol/L (137-145); Total Protein 7.8 g/dL (6.3-8.2); Triglycerides 114 mg/dL (35-150)
[2022-02-03 20:13] LABS: Creatinine Urine Random 156.5 mg/dL
[2022-02-03 20:18] LABS: Microalbumi Creatinin Ratio Ur 12.7 ug/mg CR (<30)
== END ==
PROVIDERS: PCP Family Medicine; Referring Provider Family Medicine; Visit Provider Family Medicine
DX: E11.40 Type 2 diabetes mellitus with diabetic neuropathy, unspecified (principal); G89.29 Other chronic pain; I10 Essential (primary) hypertension; M54.59 Other low back pain
CPT/HCPCS: 36415; 80053; 80061; 82043; 82570; 83036; 85025

== ENCOUNTER → 2022-02-07 10:57 | Outpatient (CLI) | payer MEDICARE, OTHER, SELFPAY ==
--- NOTE | 2022-02-07 10:59 | DI.RAD.S_ITS ---
PROCEDURE: XR HIP W PEL IF DONE LT 2V INDICATIONS: chronic left hip and back pain TECHNIQUE: AP pelvis with lateral view(s) of the left hip(s). COMPARISON: None. FINDINGS: Bones: No acute fractures or dislocations. Pelvic ring appears intact. No suspicious bony lesions. Degenerative changes of the bilateral femoroacetabular joints. Chronic soft tissue calcification projects over the left greater trochanter. Mild lower lumbar spondylosis. Soft tissues: The visualized bowel gas pattern is normal. No suspicious soft tissue calcifications. IMPRESSION: Pelvis/left hip without acute osseous abnormalities. Degenerative changes of the bilateral femoroacetabular joints Mild lower lumbar spondylosis. Dictated by: Leonardo Sears M.D. on 02/07/2022 at 12:48 Approved by: Leonardo Sears M.D. on 02/07/2022 at 12:50
--- NOTE | 2022-02-07 10:59 | DI.RAD.S_ITS ---
PROCEDURE: XR HAND LT MIN 3V INDICATIONS: bilateral hand pain TECHNIQUE: 3 views of the hand(s) acquired. COMPARISON: [facility], CR, XR HAND RT MIN 3V, 02/07/2022, 11:07. FINDINGS: Bones: No acute fractures or dislocations. Carpal bones are normally aligned. No suspicious bony lesions. Polyarticular degenerative changes of the left hand are noted predominantly involving the distal interphalangeal joints of the 2nd through 4th fingers as well as the interphalangeal joint of the left thumb. There is possible subchondral lucency involving the head of the 2nd metacarpal. No cortical disruption. Tiny juxta-articular lucencies involving the distal aspect of the left 2nd finger middle phalanx. Soft tissues: No suspicious soft tissue calcifications. IMPRESSION: Left hand without acute fracture or dislocation. Mild polyarticular degenerative changes of the left hand predominantly involving the distal interphalangeal joints of the 2nd through 4th fingers and interphalangeal joint of the left thumb. Possible subchondral lucency involving the head of the 2nd metacarpal as well as the distal aspect of the left 2nd finger middle phalanx. These are likely related to subchondral degenerative cysts; however, osseous erosions not excluded. Dictated by: Leonardo Sears M.D. on 02/07/2022 at 12:42 Approved by: Leonardo Sears M.D. on 02/07/2022 at 12:48
--- NOTE | 2022-02-07 10:59 | DI.RAD.S_ITS ---
PROCEDURE: XR HAND RT MIN 3V INDICATIONS: bilateral hand pain TECHNIQUE: 3 views of the hand(s) acquired. COMPARISON: None. FINDINGS: Bones: No acute fractures or dislocations. Carpal bones are normally aligned. No suspicious bony lesions. Mild polyarticular degenerative changes of the right hand involving the distal interphalangeal joints of the 2nd and 3rd fingers as well as the interphalangeal joint of the right thumb. Soft tissues: No suspicious soft tissue calcifications. IMPRESSION: Right hand without acute fracture or dislocation. Mild polyarticular osteoarthrosis predominantly involving the distal interphalangeal joints of the 2nd and 3rd fingers as well as the interphalangeal joint of right thumb. Dictated by: Leonardo Sears M.D. on 02/07/2022 at 12:39 Approved by: Leonardo Sears M.D. on 02/07/2022 at 12:41
== END ==
PROVIDERS: PCP Family Medicine; Referring Provider Family Medicine; Visit Provider Family Medicine
DX: M06.9 Rheumatoid arthritis, unspecified (principal); M19.041 Primary osteoarthritis, right hand; M79.641 Pain in right hand; M79.642 Pain in left hand; M47.816 Spondylosis without myelopathy or radiculopathy, lumbar region; M51.36 Other intervertebral disc degeneration, lumbar region; M54.50 Low back pain, unspecified; M25.552 Pain in left hip; G89.29 Other chronic pain
CPT/HCPCS: 73130; 73502

== ENCOUNTER → 2022-02-10 16:53 | Outpatient (CLI) | payer MEDICARE, OTHER, SELFPAY ==
--- NOTE | 2022-02-10 16:53 | DI.MRI.S_ITS ---
PROCEDURE: MR LUMBAR SPINE WO CON INDICATIONS: chronic left hip and back pain TECHNIQUE: Noncontrast sagittal T1 spin echo and T2 fast echo, sagittal STIR, and T2 fast spin echo through the lumbar spine. In cases with scoliosis, additional coronal T2 fast spin echo may be performed. COMPARISON: None. FINDINGS: Approximately 2 mm anterolisthesis of L4 on L5. Otherwise normal alignment. Vertebral body heights maintained. No suspicious focal marrow signal abnormality. Degenerative periarticular marrow edema adjacent to the left L4-L5 and L5-S1 facets, also with adjacent soft tissue edema and associated small facet effusions with subchondral cystic change in sclerosis. Normal position and appearance of the conus. Prevertebral and paraspinous soft tissues are normal. From T12-L1 through L2-L3, no spinal canal or neural foraminal stenosis. At L3-L4, mild spinal canal and subarticular zone stenosis due to diffuse disc bulge flattening the ventral thecal sac and displacing the descending L4 nerve roots in both subarticular zones. Foraminal components of the disc bulge and facet hypertrophy combine to produce moderate right and mild left neural foraminal stenosis. At L4-L5, moderate subarticular zone stenosis due to posterior disc bulge displacing the descending L5 nerve roots in both subarticular zones. Foraminal components of the disc bulge and facet hypertrophy combine to produce moderate bilateral neural foraminal stenosis. At L5-S1, diffuse disc bulge with no mass effect on the descending S1 nerve roots. No neural foraminal stenosis. IMPRESSION: Moderate degenerative changes at L4-L5 and mild-moderate degenerative changes at L3-L4. Periarticular bone marrow edema associated with the left L4-L5 and L5-S1 facets. Along with the facet effusions and adjacent soft tissue edema, this represents potential source of left-sided axial back pain. Dictated by: James Lopez M.D. on 02/11/2022 at 10:56 Approved by: James Lopez M.D. on 02/11/2022 at 10:59
== END ==
PROVIDERS: PCP Family Medicine; Referring Provider Family Medicine; Visit Provider Family Medicine
DX: M51.36 Other intervertebral disc degeneration, lumbar region (principal); M47.816 Spondylosis without myelopathy or radiculopathy, lumbar region; M79.89 Other specified soft tissue disorders; M25.552 Pain in left hip; M54.50 Low back pain, unspecified; G89.29 Other chronic pain
CPT/HCPCS: 72148

== ENCOUNTER → 2022-08-28 13:41 | Outpatient (CLI) | payer MEDICARE, OTHER, SELFPAY ==
--- NOTE | 2022-08-28 | DI.CT.S_ITS ---
PROCEDURE: CT SINUS SCREEN WO CON INDICATIONS: CHRONIC PANSINUSITIS TECHNIQUE: Noncontrast 3.0 mm axial images acquired from the frontal sinuses to the mid-sella, with coronal and sagittal reformats. For radiation dose reduction, the following was used: automated exposure control, adjustment of mA and/or kV according to patient size. COMPARISON: None. FINDINGS: Image quality: Excellent. Maxillary Sinuses: No bony remodeling or destruction. Sinuses are clear. Ethmoid Air Cells: No bony remodeling or destruction. Sinuses are clear. Sphenoid Sinuses: No bony remodeling or destruction. Sinuses are clear. Frontal Sinuses: No bony remodeling or destruction. Sinuses are clear. Ostiomeatal Complexes: Ostiomeatal complexes are patent. No Gino cells. Miscellaneous: Visualized intra-orbital contents are normal. No ty bullosa or paradoxical turbinate curvature. No nasal septal deviation. IMPRESSION: Normal CT of the paranasal sinuses Approved by: Olivier Laura M.D. on 08/28/2022 at 15:22
== END ==
PROVIDERS: Family Provider Family Medicine; PCP Family Medicine; Referring Provider Otolaryngology; Visit Provider Otolaryngology
DX: J32.4 Chronic pansinusitis (principal); J34.89 Other specified disorders of nose and nasal sinuses
CPT/HCPCS: 70486

== ENCOUNTER → 2022-09-03 14:33 | Outpatient (CLI) | payer MEDICARE, OTHER, SELFPAY ==
[2022-09-03 15:56] LABS: C-Reactive Protein Quant 0.6 mg/dL (<1.0)
[2022-09-03 16:15] LABS: Rheumatoid Factor < 8.6 IU/mL (<12.0)
[2022-09-04 09:48] LABS: Labcorp Hemoglobin (Hb) A1c 9.6 % (4.8-5.6)
[2022-09-05 19:16] LABS: ANA Screen, IFA Negative (.)
== END ==
PROVIDERS: Family Provider Family Medicine; PCP Family Medicine; Referring Provider Family Medicine; Visit Provider Family Medicine
DX: M06.9 Rheumatoid arthritis, unspecified (principal); E11.40 Type 2 diabetes mellitus with diabetic neuropathy, unspecified
CPT/HCPCS: 36415; 83036; 86038; 86140; 86430

== ENCOUNTER → 2023-02-03 09:58 | Outpatient (CLI) | payer MEDICARE, OTHER, SELFPAY ==
[2023-02-03 10:51] LABS: Add Manual Diff / Slide Review NO; Basophils Absolute Auto 100 /uL (0-100); Basophils Percent Auto 0.5 % (0-2); Eosinophils Absolute Auto 0 /uL (0-450); Eosinophils Percent Auto 0.1 % (2-4); Hemoglobin 14.3 g/dL (13.5-17.5); Lymphocytes Absolute Auto 1600 /uL (1100-4500); Lymphocytes Percent Auto 11.4 % (25-40); Mean Corpuscular HGB Conc 33.2 % (30-36); Mean Corpuscular Hemoglobin 27.4 PG (26-34); Mean Corpuscular Volume 82.6 fL (80-100); Monocytes Absolute Auto 2000 /uL (0-900); Monocytes Percent Auto 14.3 % (3-14); Neutrophils Absolute Auto 10200 /uL (1500-7000); Neutrophils Percent Auto 73.7 % (50-75); Platelet Count 431 X10^3/uL (150-400); Red Blood Cell Count 5.21 X10^6/uL (4.5-5.9); Red Cell Distribution Width 13.9 % (11.6-14.8); White Blood Cell Count 13.8 X10^3/uL (4.5-11.0)
--- NOTE | 2023-02-03 10:55 | DI.RAD.S_ITS ---
PROCEDURE: XR CHEST 2V INDICATIONS: sharp chest/throat pain with deep breathx2 week, worsening TECHNIQUE: 2 views of the chest were acquired. COMPARISON: None. FINDINGS: Surgical changes and devices: None. Lungs and pleura: Lungs are clear. No pleural effusions or pneumothorax. Mediastinum: Mediastinal contours are normal. Heart size is normal. Bones and chest wall: No suspicious bony abnormalities. Soft tissues appear unremarkable. IMPRESSION: No acute cardiopulmonary abnormality is seen. Approved by: Olivier Laura M.D. on 02/03/2023 at 11:03
[2023-02-03 10:56] LABS: Hemoglobin A1C% w Est Avg Glu 6.8 % (4.0-6.0)
[2023-02-03 11:05] LABS: Alanine Aminotransferase 23 IU/L (<50); Albumin 4.2 g/dL (3.5-5.0); Albumin Globulin Ratio 1.4 (1.0-2.8); Alkaline Phosphatase 97 U/L (38-126); Aspartate Aminotransferase 21 IU/L (17-59); BUN Creatinine Ratio 14.7 (6-22); Bilirubin Total 1.2 mg/dL (0.2-1.3); Blood Urea Nitrogen 14 mg/dL (9-20); Calcium 9.7 mg/dL (8.4-10.2); Carbon Dioxide 26 mmol/L (22-32); Chloride 99 mmol/L (98-107); Cholesterol 158 mg/dL (140-199); Estimated Glomerular Filt Rate > 60 mL/min (>60); Glucose 121 mg/dL (80-110); HDL Cholesterol 70 mg/dL (40-60); HEMOLYSIS < 15 (0-50); LDL Cholesterol Calculated 70 mg/dL (<100); Potassium 4.1 mmol/L (3.4-5.1); Sodium 136 mmol/L (137-145); Total Protein 7.2 g/dL (6.3-8.2); Triglycerides 90 mg/dL (35-150)
[2023-02-03 11:35] LABS: Prostate Specific Antigen Scrn 0.274 ng/mL (0.1-4.0)
[2023-02-03 11:36] LABS: TSH w/ Reflex to FT4 1.24 uIU/mL (0.47-4.68)
== END ==
LOC: LAB 10:00 → RAD 10:54
PROVIDERS: Family Provider Family Medicine; PCP Family Medicine; Referring Provider Family Medicine; Visit Provider Family Medicine
DX: R07.0 Pain in throat (principal); Z12.5 Encounter for screening for malignant neoplasm of prostate; E11.9 Type 2 diabetes mellitus without complications; E78.5 Hyperlipidemia, unspecified; F32.A Depression, unspecified; F41.9 Anxiety disorder, unspecified; I10 Essential (primary) hypertension; R07.1 Chest pain on breathing
CPT/HCPCS: 36415; 71046; 80053; 80061; 82043; 82550; 82570; 83036; 84443; 84484; 85025; 85651; G0103

== ENCOUNTER → 2023-02-03 10:56 | Outpatient (CLI) | payer MEDICARE, OTHER, SELFPAY ==
[2023-02-03 11:56] LABS: Creatine Kinase 33 U/L (55-170)
[2023-02-03 12:09] LABS: Troponin I < 0.012 ng/mL (0.01-0.034)
[2023-02-03 12:13] LABS: Erythrocyte Sedimentation Rate 15 MM/HR (0-15)
[2023-02-03 16:04] LABS: Creatinine Urine Random 146.4 mg/dL
[2023-02-03 16:08] LABS: Microalbumi Creatinin Ratio Ur 9.5 ug/mg CR (<30); Microalbumin Urine Random 1.4 mg/dL (0-1.6)
== END ==
PROVIDERS: Family Provider Family Medicine; PCP Family Medicine; Visit Provider Student in an Organized Health Care Education/Training Program
DX: R07.0 Pain in throat (principal); R07.1 Chest pain on breathing; E11.9 Type 2 diabetes mellitus without complications; E78.5 Hyperlipidemia, unspecified; F32.A Depression, unspecified; F41.9 Anxiety disorder, unspecified; I10 Essential (primary) hypertension
CPT/HCPCS: 82043; 82550; 82570; 84484; 85651

== ENCOUNTER → 2023-03-04 15:53 | Outpatient (CLI) | payer MEDICARE, OTHER, SELFPAY ==
[2023-03-04 18:29] LABS: Add Manual Diff / Slide Review NO; Basophils Absolute Auto 100 /uL (0-100); Basophils Percent Auto 0.6 % (0-2); Eosinophils Absolute Auto 200 /uL (0-450); Eosinophils Percent Auto 2.1 % (2-4); Hematocrit 38.1 % (41-53); Hemoglobin 12.6 g/dL (13.5-17.5); Lymphocytes Absolute Auto 2400 /uL (1100-4500); Lymphocytes Percent Auto 24.3 % (25-40); Mean Corpuscular HGB Conc 33.1 % (30-36); Mean Corpuscular Hemoglobin 26.8 PG (26-34); Mean Corpuscular Volume 81.1 fL (80-100); Monocytes Absolute Auto 1200 /uL (0-900); Monocytes Percent Auto 11.9 % (3-14); Neutrophils Absolute Auto 6100 /uL (1500-7000); Neutrophils Percent Auto 61.1 % (50-75); Platelet Count 583 X10^3/uL (150-400); Red Cell Distribution Width 13.1 % (11.6-14.8)
[2023-03-04 18:49] LABS: Alanine Aminotransferase 27 IU/L (<50); Alkaline Phosphatase 98 U/L (38-126); Aspartate Aminotransferase 29 IU/L (17-59); BUN Creatinine Ratio 21.3 (6-22); Bilirubin Total 0.3 mg/dL (0.2-1.3); Blood Urea Nitrogen 19 mg/dL (9-20); Calcium 9.9 mg/dL (8.4-10.2); Carbon Dioxide 29 mmol/L (22-32); Chloride 101 mmol/L (98-107); Estimated Glomerular Filt Rate > 60 mL/min (>60); Glucose 109 mg/dL (80-110); HEMOLYSIS < 15 (0-50); Sodium 140 mmol/L (137-145)
[2023-03-04 19:20] LABS: TSH w/ Reflex to FT4 1.88 uIU/mL (0.47-4.68)
== END ==
PROVIDERS: Family Provider Family Medicine; PCP Family Medicine; Referring Provider Physician Assistant; Visit Provider Physician Assistant
DX: R61 Generalized hyperhidrosis (principal)
CPT/HCPCS: 36415; 80053; 84443; 85025

== ENCOUNTER → 2023-03-04 17:28 | Outpatient (CLI) | payer MEDICARE, OTHER, SELFPAY ==
--- NOTE | 2023-03-04 17:34 | DI.RAD.S_ITS ---
PROCEDURE: XR CHEST 2V INDICATIONS: chronic cough, night sweats x 1 mo TECHNIQUE: 2 views of the chest were acquired. COMPARISON: [facility], CR, XR CHEST 2V, 02/03/2023, 11:13. FINDINGS: Surgical changes and devices: None. Lungs and pleura: Mild diffuse interstitial prominence. Flattening of the bilateral hemidiaphragms. Blunting of the bilateral costophrenic angles not seen on the prior study. These likely represent small bilateral pleural effusions. No pneumothorax. No focal consolidation. Mediastinum: Mediastinal contours are normal. Heart size is normal. Bones and chest wall: No suspicious bony abnormalities. Soft tissues appear unremarkable. IMPRESSION: Diffuse interstitial prominence and small bilateral pleural effusions are new. No focal consolidations. Findings may represent sequela an infectious or inflammatory process. Pulmonary edema may have a similar appearance if clinically appropriate. Recommend follow up chest radiograph 4-6 weeks after treatment to document resolution of findings and/or return to baseline examination. Dictated by: Leonardo Sears M.D. on 03/05/2023 at 10:13 Approved by: Leonardo Sears M.D. on 03/05/2023 at 10:14
== END ==
PROVIDERS: Family Provider Family Medicine; PCP Family Medicine; Referring Provider Physician Assistant; Visit Provider Physician Assistant
DX: J90 Pleural effusion, not elsewhere classified (principal); R61 Generalized hyperhidrosis
CPT/HCPCS: 36415; 71046; 80053; 84443; 85025

== ENCOUNTER → 2023-09-02 07:53 | Outpatient (CLI) | payer MEDICARE, OTHER, SELFPAY ==
[2023-09-02 08:30] LABS: Add Manual Diff / Slide Review NO; Basophils Absolute Auto 100 /uL (0-100); Basophils Percent Auto 0.8 % (0-2); Eosinophils Absolute Auto 200 /uL (0-450); Eosinophils Percent Auto 2.4 % (2-4); Hematocrit 45.2 % (41-53); Hemoglobin 15.2 g/dL (13.5-17.5); Lymphocytes Absolute Auto 1900 /uL (1100-4500); Lymphocytes Percent Auto 23.7 % (25-40); Mean Corpuscular HGB Conc 33.5 % (30-36); Mean Corpuscular Hemoglobin 28.3 PG (26-34); Mean Corpuscular Volume 84.5 fL (80-100); Monocytes Absolute Auto 700 /uL (0-900); Monocytes Percent Auto 9.4 % (3-14); Neutrophils Absolute Auto 5000 /uL (1500-7000); Neutrophils Percent Auto 63.7 % (50-75); Platelet Count 312 X10^3/uL (150-400); Red Blood Cell Count 5.35 X10^6/uL (4.5-5.9); Red Cell Distribution Width 14.4 % (11.6-14.8); White Blood Cell Count 7.9 X10^3/uL (4.5-11.0)
[2023-09-02 08:44] LABS: Hemoglobin A1C% w Est Avg Glu 6.8 % (4.0-6.0)
[2023-09-02 08:51] LABS: Alanine Aminotransferase 21 IU/L (<50); Albumin 4.7 g/dL (3.5-5.0); Albumin Globulin Ratio 1.6 (1.0-2.8); Alkaline Phosphatase 80 U/L (38-126); Aspartate Aminotransferase 26 IU/L (17-59); BUN Creatinine Ratio 21.9 (6-22); Bilirubin Total 0.7 mg/dL (0.2-1.3); Blood Urea Nitrogen 21 mg/dL (9-20); C-Reactive Protein Quant < 0.5 mg/dL (<1.0); Calcium 9.6 mg/dL (8.4-10.2); Carbon Dioxide 29 mmol/L (22-32); Chloride 105 mmol/L (98-107); Cholesterol 143 mg/dL (140-199); Estimated Glomerular Filt Rate > 60 mL/min (>60); Globulin 2.9 g/dL (1.7-4.1); Glucose 129 mg/dL (80-110); HDL Cholesterol 55 mg/dL (40-60); HEMOLYSIS < 15 (0-50); LDL Cholesterol Calculated 68 mg/dL (<100); Potassium 4.2 mmol/L (3.4-5.1); Sodium 139 mmol/L (137-145); Total Protein 7.6 g/dL (6.3-8.2); Triglycerides 101 mg/dL (35-150)
[2023-09-02 08:56] LABS: Rheumatoid Factor < 8.6 IU/mL (<12.0)
[2023-09-02 09:17] LABS: TSH w/ Reflex to FT4 2.82 uIU/mL (0.47-4.68)
[2023-09-02 09:23] LABS: Ferritin 26 ng/mL (18-464)
[2023-09-02 11:36] LABS: Erythrocyte Sedimentation Rate 2 MM/HR (0-15)
[2023-09-03 07:20] LABS: Apolipoprotein B 60 mg/dL (<90)
[2023-09-04 15:06] LABS: CCP Antibodies IgG/IgA 0 units (0-19)
== END ==
LOC: LAB 07:54
PROVIDERS: Physician Assistant; Family Provider Family Medicine; PCP Family Medicine; Referring Provider Family Medicine; Visit Provider Family Medicine
DX: D64.9 Anemia, unspecified (principal); G47.30 Sleep apnea, unspecified; I10 Essential (primary) hypertension; J90 Pleural effusion, not elsewhere classified; E78.5 Hyperlipidemia, unspecified; M25.60 Stiffness of unspecified joint, not elsewhere classified; M25.40 Effusion, unspecified joint
CPT/HCPCS: 36415; 80053; 80061; 82172; 82728; 83036; 84443; 85025; 85651; 86140; 86200; 86430

== ENCOUNTER → 2023-09-04 13:42 | Outpatient (CLI) | payer MEDICARE, OTHER, SELFPAY ==
--- NOTE | 2023-09-04 13:44 | DI.RAD.S_ITS ---
PROCEDURE: XR CHEST 2V INDICATIONS: f/u abnormal xray - recheck TECHNIQUE: 2 views of the chest were acquired. COMPARISON: [facility], CR, XR CHEST 2V, 03/04/2023, 17:39. [facility], CR, XR CHEST 2V, 02/03/2023, 11:13. FINDINGS: Surgical changes and devices: None. Lungs and pleura: No acute consolidation. No pleural effusions. Small nodules project over lower lungs, which may represent nipple shadows. Mediastinum: Heart size. Cardiomediastinal contours are unchanged. Bones and chest wall: Degenerative findings. IMPRESSION: No acute radiographic abnormality. Small nodules, indeterminate, projecting over lower lungs, differential includes nipple shadows. Dictated by: Bladimir Castrejon M.D. on 09/04/2023 at 14:45 Approved by: Bladimir Castrejon M.D. on 09/04/2023 at 14:48
== END ==
LOC: RAD 13:44
PROVIDERS: Family Provider Family Medicine; PCP Family Medicine; Referring Provider Physician Assistant; Visit Provider Physician Assistant
DX: J90 Pleural effusion, not elsewhere classified (principal); D64.9 Anemia, unspecified; R91.8 Other nonspecific abnormal finding of lung field
CPT/HCPCS: 71046

== ENCOUNTER → 2024-08-09 15:09 | Outpatient (CLI) | payer MEDICARE, OTHER, SELFPAY ==
--- NOTE | 2024-08-09 15:12 | DI.RAD.S_ITS ---
PROCEDURE: XR HAND RT MIN 3V INDICATIONS: Bilateral hand pain TECHNIQUE: 3 views of the hand(s) acquired. COMPARISON: [facility], , XR HAND RT MIN 3V, 02/07/2022, 11:07. FINDINGS: Bones: There are no osseous abnormalities Joints: The joint spaces are normal in width and alignment without arthritic change. Soft tissues: No soft tissue abnormality. IMPRESSION: Normal right hand. Dictated by: Elijah Hawk M.D. on 08/10/2024 at 6:50 Approved by: Elijah Hawk M.D. on 08/10/2024 at 6:51
--- NOTE | 2024-08-09 15:12 | DI.RAD.S_ITS ---
PROCEDURE: XR LUMBAR SPINE 2-3V INDICATIONS: Back and L hip pain TECHNIQUE: 3 views of the lumbar spine were acquired. COMPARISON: None. FINDINGS: Lumbar spine curvature and alignment: Grade 1 L4-5 spondylolisthesis due to degenerate facet disease appreciated. Bones: There are no osseous abnormalities. Disc spaces: Mild L3-4, L4-5 and L5-S1 degenerative disc disease noted. There is moderate L3-4 through L5-S1 degenerative facet disease. Soft tissues: No soft tissue swelling, calcification or mass. IMPRESSION: Degeneration Dictated by: Elijah Hawk M.D. on 08/10/2024 at 6:48 Approved by: Elijah Hawk M.D. on 08/10/2024 at 6:49
--- NOTE | 2024-08-09 15:12 | DI.RAD.S_ITS ---
PROCEDURE: XR ELBOW LT MIN 3V INDICATIONS: bilateral elbow xray TECHNIQUE: 3 views of the elbow were acquired. COMPARISON: None. FINDINGS: Bones: There are no osseous abnormalities. Elbow joint: Normal in width and alignment without arthritic change. There are no effusions. Soft tissues: Minor calcification at the expected insertion of the lateral collateral ligament on the lateral humeral condyle appreciated. This may indicate chronic sprain IMPRESSION: Possible chronic sprain lateral collateral ligament insertion. Please correlate with lateral instability Dictated by: Elijah Hawk M.D. on 08/10/2024 at 7:00 Approved by: Elijah Hawk M.D. on 08/10/2024 at 7:01
--- NOTE | 2024-08-09 15:12 | DI.RAD.S_ITS ---
PROCEDURE: XR WRIST LT MIN 3V INDICATIONS: Pain TECHNIQUE: Four views of the left wrist were acquired. COMPARISON: None. FINDINGS: Bones: There are no osseous abnormalities Joints: The joint spaces are normal in width and alignment without arthritic change. Soft tissues: No soft tissue abnormality. IMPRESSION: Normal left wrist. Dictated by: Elijah Hawk M.D. on 08/10/2024 at 6:59 Approved by: Elijah Hawk M.D. on 08/10/2024 at 7:00
--- NOTE | 2024-08-09 15:12 | DI.RAD.S_ITS ---
PROCEDURE: XR ELBOW RT MIN 3V INDICATIONS: bilateral elbow xray TECHNIQUE: 3 views of the elbow were acquired. COMPARISON: None. FINDINGS: Bones: Minor calcification at the lateral collateral ligament insertion on the lateral humeral epicondyle may be stigmata of remote trauma/sprain Elbow joint: Normal in width and alignment without arthritic change. There are no effusions. Soft tissues: No soft tissue swelling, calcification or mass. IMPRESSION: Calcification lateral collateral ligament insertion on lateral epicondyle may indicates chronic sprain. Please correlate with lateral instability Dictated by: Elijah Hawk M.D. on 08/10/2024 at 6:52 Approved by: Elijah Hawk M.D. on 08/10/2024 at 6:58
--- NOTE | 2024-08-09 15:12 | DI.RAD.S_ITS ---
PROCEDURE: XR HIP W PEL IF DONE LT 2V INDICATIONS: Back and L hip pain TECHNIQUE: Two views of the left were acquired. COMPARISON: [facility], CR, XR HIP W PEL IF DONE LT 2V, 02/07/2022, 11:07. FINDINGS: Bones: Small nondisplaced avulsion fracture of the anterior left greater trochanteric region is age indeterminate. SI and hip joints: Normal in width and alignment without arthritic change Soft tissues: No soft tissue swelling, calcification or mass. IMPRESSION: Nondisplaced avulsion fracture anterior left greater trochanteric region- age indeterminate Dictated by: Elijah Hawk M.D. on 08/10/2024 at 6:47 Approved by: Elijah Hawk M.D. on 08/10/2024 at 6:48
--- NOTE | 2024-08-09 15:12 | DI.RAD.S_ITS ---
PROCEDURE: XR WRIST RT MIN 3V INDICATIONS: bilateral elbow xray TECHNIQUE: Four views of the right wrist were acquired. COMPARISON: None. FINDINGS: Bones: There are no osseous abnormalities Joints: The joint spaces are normal in width and alignment without arthritic change. Soft tissues: No soft tissue abnormality. IMPRESSION: Normal right wrist. Dictated by: Elijah Hawk M.D. on 08/10/2024 at 6:51 Approved by: Elijah Hawk M.D. on 08/10/2024 at 6:52
--- NOTE | 2024-08-09 15:12 | DI.RAD.S_ITS ---
PROCEDURE: XR HAND LT MIN 3V INDICATIONS: Bilateral hand pain TECHNIQUE: 3 views of the hand(s) acquired. COMPARISON: [facility], CR, XR HAND RT MIN 3V, 02/07/2022, 11:07. FINDINGS: Bones: There are no osseous abnormalities Joints: Mild degeneration of the STT 1st CMC and all interphalangeal joints appreciated. Soft tissues: No soft tissue abnormality. IMPRESSION: Mild degeneration Dictated by: Elijah Hawk M.D. on 08/10/2024 at 6:58 Approved by: Elijah Hawk M.D. on 08/10/2024 at 6:59
== END ==
PROVIDERS: Family Provider Family Medicine; PCP Family Medicine; Referring Provider Family Medicine; Visit Provider Family Medicine
DX: S72.115A Nondisplaced fracture of greater trochanter of left femur, initial encounter for closed fracture (principal); M51.369 Other intervertebral disc degeneration, lumbar region without mention of lumbar back pain or lower extremity pain; M47.816 Spondylosis without myelopathy or radiculopathy, lumbar region; M47.817 Spondylosis without myelopathy or radiculopathy, lumbosacral region; M51.379 Other intervertebral disc degeneration, lumbosacral region without mention of lumbar back pain or lower extremity pain; M18.12 Unilateral primary osteoarthritis of first carpometacarpal joint, left hand; M19.042 Primary osteoarthritis, left hand; M25.552 Pain in left hip; M79.641 Pain in right hand; M79.642 Pain in left hand; M25.529 Pain in unspecified elbow; M54.9 Dorsalgia, unspecified; G89.29 Other chronic pain; M06.9 Rheumatoid arthritis, unspecified; E78.5 Hyperlipidemia, unspecified; I10 Essential (primary) hypertension; E11.9 Type 2 diabetes mellitus without complications
CPT/HCPCS: 72100; 73080; 73110; 73130; 73502

== ENCOUNTER → 2024-08-19 15:23 | Outpatient (CLI) | payer MEDICARE, OTHER, SELFPAY ==
[2024-08-19 15:44] LABS: Add Manual Diff / Slide Review NO; Basophils Absolute Auto 100 /uL (0-100); Basophils Percent Auto 0.8 % (0-2); Eosinophils Absolute Auto 200 /uL (0-450); Eosinophils Percent Auto 2.2 % (2-4); Hematocrit 47.4 % (41-53); Lymphocytes Absolute Auto 2900 /uL (1100-4500); Lymphocytes Percent Auto 29.7 % (25-40); Mean Corpuscular HGB Conc 33.8 % (30-36); Mean Corpuscular Hemoglobin 28.4 PG (26-34); Mean Corpuscular Volume 84.1 fL (80-100); Monocytes Absolute Auto 1000 /uL (0-900); Monocytes Percent Auto 10.4 % (3-14); Neutrophils Absolute Auto 5500 /uL (1500-7000); Neutrophils Percent Auto 56.9 % (50-75); Platelet Count 313 X10^3/uL (150-400); Red Blood Cell Count 5.64 X10^6/uL (4.5-5.9); Red Cell Distribution Width 13.9 % (11.6-14.8); White Blood Cell Count 9.7 X10^3/uL (4.5-11.0)
[2024-08-19 15:59] LABS: Alanine Aminotransferase 28 IU/L (<50); Albumin 5.1 g/dL (3.5-5.0); Albumin Globulin Ratio 1.8 (1.0-2.8); Alkaline Phosphatase 91 U/L (38-126); Aspartate Aminotransferase 27 IU/L (17-59); Bilirubin Total 0.9 mg/dL (0.2-1.3); Blood Urea Nitrogen 16 mg/dL (9-20); Calcium 10.2 mg/dL (8.4-10.2); Carbon Dioxide 27 mmol/L (22-32); Chloride 101 mmol/L (98-107); Cholesterol 178 mg/dL (140-199); Estimated Glomerular Filt Rate > 60 mL/min (>60); Globulin 2.8 g/dL (1.7-4.1); Glucose 105 mg/dL (80-110); HDL Cholesterol 71 mg/dL (40-60); HEMOLYSIS < 15 (0-50); LDL Cholesterol Calculated 80 mg/dL (<100); Sodium 139 mmol/L (137-145); Total Protein 7.9 g/dL (6.3-8.2); Triglycerides 135 mg/dL (35-150)
[2024-08-19 16:00] LABS: Hemoglobin A1C% w Est Avg Glu 6.9 % (4.0-6.0)
[2024-08-19 16:26] LABS: TSH w/ Reflex to FT4 3.33 uIU/mL (0.47-4.68)
[2024-08-19 16:28] LABS: Prostate Specific Antigen Scrn 0.265 ng/mL (0.1-4.0)
[2024-08-21 08:09] LABS: Apolipoprotein B 74 mg/dL (<90)
== END ==
PROVIDERS: Family Provider Family Medicine; PCP Family Medicine; Referring Provider Family Medicine; Visit Provider Family Medicine
DX: Z00.00 Encounter for general adult medical examination without abnormal findings (principal); E78.5 Hyperlipidemia, unspecified; E11.9 Type 2 diabetes mellitus without complications; Z12.5 Encounter for screening for malignant neoplasm of prostate; I10 Essential (primary) hypertension; M06.9 Rheumatoid arthritis, unspecified
CPT/HCPCS: 36415; 80053; 80061; 82172; 83036; 84443; 85025; G0103

== ENCOUNTER → 2024-09-21 10:14 | Outpatient (CLI) | payer MEDICARE, OTHER, SELFPAY ==
--- NOTE | 2024-09-21 10:18 | DI.RAD.S_ITS ---
PROCEDURE: XR LUMBAR SPINE MIN 4V INDICATIONS: Pain. r/o comp Fx TECHNIQUE: 5 views of the lumbar spine were acquired, including bilateral oblique views. COMPARISON: [facility], , XR LUMBAR SPINE 2-3V, 08/09/2024, 15:15. FINDINGS: Bones: 5 nonrib-bearing vertebrae are present. There is 6 millimeters of L4-L5 anterolisthesis secondary to facet hypertrophy. Chronic T11 compression deformities stable compared to prior study. There is new subtle loss of vertebral body height involving the superior endplate of the L2 vertebral body concerning for acute/subacute fracture. No suspicious bony lesions. Mild degenerative disc changes throughout the lumbar spine. Moderate L3-L4, L4-L5 and L5-S1 facet arthropathy. Soft tissues: Overlying bowel gas pattern is normal. No suspicious soft tissue calcifications. Cholecystectomy clips. Oblique images: No pars defects. IMPRESSION: Multilevel degenerative disc disease. Multilevel facet arthropathy. New, mild loss of height involving the L2 vertebral body concerning for acute/subacute compression fracture. Consider MRI of the lumbar spine for additional evaluation. Dictated by: Nancy Krishnan MD, PhD on 09/21/2024 at 12:23 Approved by: Nancy Krishnan MD, PhD on 09/21/2024 at 12:26
== END ==
PROVIDERS: Family Provider Family Medicine; PCP Family Medicine; Referring Provider Chiropractor; Visit Provider Chiropractor
DX: M47.816 Spondylosis without myelopathy or radiculopathy, lumbar region (principal); M51.369 Other intervertebral disc degeneration, lumbar region without mention of lumbar back pain or lower extremity pain; M51.379 Other intervertebral disc degeneration, lumbosacral region without mention of lumbar back pain or lower extremity pain; M43.8X4 Other specified deforming dorsopathies, thoracic region
CPT/HCPCS: 72110

== ENCOUNTER → 2025-01-27 14:50 | Outpatient (CLI) | payer MEDICARE, OTHER, SELFPAY ==
--- NOTE | 2025-01-27 14:51 | DI.US.S_ITS ---
PROCEDURE: US HERNIA INDICATIONS: INTERMITTENT LUMP WITH STANDING/EXERCISE NEAR STERNUM TECHNIQUE: Real-time focused scanning was performed of the substernal/sub xiphoid region, with image documentation. COMPARISON: [facility], XR CHEST 2V, 09/04/2023, 13:52. FINDINGS: No abnormality found. IMPRESSION: No sonographic evidence for sub xiphoid body wall hernia. No soft tissue mass in that area is seen. Dictated by: Clifford Santiago M.D. on 01/27/2025 at 15:50 Approved by: Clifford Santiago M.D. on 01/27/2025 at 15:51
== END ==
PROVIDERS: Family Provider Family Medicine; PCP Family Medicine; Referring Provider Family Medicine; Visit Provider Family Medicine
DX: R19.00 Intra-abdominal and pelvic swelling, mass and lump, unspecified site (principal)
CPT/HCPCS: 76705

== ENCOUNTER → 2025-02-21 14:29 | Outpatient (CLI) | payer MEDICARE, OTHER, SELFPAY ==
[2025-02-21 15:04] LABS: Hemoglobin A1C% w Est Avg Glu 6.9 % (4.0-6.0)
[2025-02-21 15:58] LABS: Alanine Aminotransferase 28 IU/L (<50); Albumin 5.1 g/dL (3.5-5.0); Albumin Globulin Ratio 1.8 (1.0-2.8); Alkaline Phosphatase 88 U/L (38-126); Blood Urea Nitrogen 15 mg/dL (9-20); Calcium 9.9 mg/dL (8.4-10.2); Carbon Dioxide 28 mmol/L (22-32); Chloride 100 mmol/L (98-107); Estimated Glomerular Filt Rate > 60 mL/min (>60); Globulin 2.8 g/dL (1.7-4.1); Glucose 95 mg/dL (70-99); HEMOLYSIS < 15 (0-50); Potassium 4.3 mmol/L (3.4-5.1); Sodium 140 mmol/L (137-145); Total Protein 7.9 g/dL (6.3-8.2)
== END ==
PROVIDERS: Family Provider Family Medicine; PCP Family Medicine; Referring Provider Family Medicine; Visit Provider Family Medicine
DX: E11.9 Type 2 diabetes mellitus without complications (principal); I10 Essential (primary) hypertension; E78.5 Hyperlipidemia, unspecified
CPT/HCPCS: 36415; 80053; 83036

== ENCOUNTER → 2025-03-23 18:22 | Outpatient (CLI) | payer MEDICARE, OTHER, SELFPAY ==
--- NOTE | 2025-03-23 18:25 | DI.RAD.S_ITS ---
PROCEDURE: XR KNEE LT 3V INDICATIONS: Left knee pain TECHNIQUE: 3 views of the knee were acquired. COMPARISON: None. FINDINGS: Bones: No acute fracture or dislocation. Joint spaces are well maintained. Small ossification about the lateral patellar facet, representing prior injury. Soft tissues: No joint effusion. No suspicious soft tissue calcifications. IMPRESSION: No acute bony abnormality or significant effusion. Dictated by: Virginia Ren M.D. on 03/24/2025 at 17:19 Approved by: Virginia Ren M.D. on 03/24/2025 at 17:20
== END ==
PROVIDERS: Family Provider Family Medicine; PCP Family Medicine; Referring Provider Nurse Practitioner Family; Visit Provider Nurse Practitioner Family
DX: M25.562 Pain in left knee (principal)
CPT/HCPCS: 73562

== ENCOUNTER → 2025-04-27 19:27 | Outpatient (CLI) | payer MEDICARE, OTHER, SELFPAY ==
--- NOTE | 2025-04-27 19:29 | DI.MRI.S_ITS ---
PROCEDURE: MR KNEE LT WO CON INDICATIONS: left medial knee pain TECHNIQUE: Noncontrast sagittal PD fast spin echo and T2 fast spin echo with fat saturation, sagittal 3-D FLASH with fat saturation; coronal T1 spin echo and PD fast spin echo with fat saturation, and axial PD fast spin echo with fat saturation through the knee. COMPARISON: [facility], CR, XR KNEE LT 3V, 03/23/2025, 18:21. FINDINGS: Image quality: Diagnostic. Menisci: Multidirectional tearing of the medial meniscal body with complete cleavage tear of the central to posterior body, partial radial tear of the posterior horn body junction. The posterior meniscal body and horn junction is macerate and severely extruded. The lateral meniscus is intact. Ligaments: The ACL is intact. The PCL is intact. Stress related edema along the deep MCL fibers at the joint line secondary to meniscal extrusion. No high-grade tear. The LCL is intact. The posterolateral supporting structures are intact. Extensor Mechanism: Quadriceps tendon is intact. The patellar tendon is intact. The patellar retinacula are intact. Osseous Structures: There is no fracture or dislocation. No suspicious marrow replacing process. Small knee joint effusion. Hoffa's fat pad is unremarkable. Articular Cartilage: Patellofemoral compartment: Deep articular cartilage thinning of the patella with areas of full-thickness thinning and fraying to bone in the medial and lateral facet. Intermediate articular cartilage thinning and fraying in the inferior central femoral trochlea. Medial compartment: Intermediate articular cartilage thinning of the peripheral weight-bearing condylar and tibial articular cartilage with subchondral bone marrow edema deep to the articular cartilage loss and adjacent to the multidirectional meniscal tear. Lateral compartment: Hypointense articular cartilage within the tibial plateau. Partial thickness, grade 2, fraying of the central weight-bearing tibial articular cartilage. Other: The visualized muscles and tendons appear normal for age. No Santos's cyst. Normal neurovascular signal. Subcutaneous fat edema along the anterior medial knee. IMPRESSION: 1. Medial meniscus multidirectional tear of the body to posterior horn results in meniscal maceration. 2. 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 3. Moderate chondromalacia in the medial compartment with associated subchondral bone marrow edema, possibly stress related without discrete stress/insufficiency fracture. Dictated by: Matthew Clemons M.D. on 04/28/2025 at 7:48 Approved by: Matthew Clemons M.D. on 04/28/2025 at 7:54
== END ==
LOC: MRI 19:29
PROVIDERS: Family Provider Family Medicine; PCP Family Medicine; Referring Provider Physician Assistant Surgical; Visit Provider Physician Assistant Surgical
DX: S83.242A Other tear of medial meniscus, current injury, left knee, initial encounter (principal); M22.42 Chondromalacia patellae, left knee; M25.562 Pain in left knee
CPT/HCPCS: 73721